=== PATIENT | female | born 1940 | race African-American/Black ===

== ENCOUNTER 2017-06-25 17:14 | Emergency (ER) | payer MEDICARE, BC ==
--- NOTE | 2017-06-25 18:06 | CT ---
NONCONTRAST CT HEAD 06/25/17 HISTORY: Head Injury after slipping and falling on ice. Patient fell backwards and hit back of head. Mild righ t sided neck pain and pain to back of head. COMPARISON: None available. FINDINGS: There is increased density seen within a posterior sulcus right frontal lobe at the vertex consistent with small amount of subarachnoid hemorrhage. No additional intraparenchymal or extra-axial hemorrha ge is visualized. There is no evidence of an acute infarction, mass effect, or midline shift. Ventricular system is nor mal in size, shape and position for the degree of sulcal atrophy. Calvarial structures are intact, an d no calvarial fracture is visualized. Minimal mucosal thickening is seen in the posterior right ethm oidal air cell. Mastoid air cells are clear. IMPRESSION: 1. Small amount of subarachnoid hemorrhage posterior right frontal lobe near the vertex. Followu p evaluation is recommended to evaluate for expected evolutionary changes in blood products. 2. Above findings discussed with Dr. Carreon in the Emergency Department on 06/25/17 at 1747 hours . POS: [facility]
[2017-06-25 18:39] LABS: #Basophils 0.1 thou/uL (0.0-0.2); #Eosinphils 0.1 thou/uL (0.0-0.7); #Lymphocytes 1.8 thou/uL (1.20-3.40); #Monocytes 0.5 thou/uL (0.11-0.59); #Neutrophils 6.9 thou/uL (1.40-6.50); %Basophils 0.5 % (0.0-1.0); %Eosinophils 0.8 % (0.0-10.0); %Lymphocytes 18.9 % (21.0-51.0); %Monocytes 5.3 % (0.0-10.0); %Neutrophils 74.4 % (42.0-75.0); Hemoglobin 12.7 g/dL (12.0-16.0); Mean Corpuscular HGB CONC 32.3 g/dL (32.0-36.0); Mean Corpuscular Hemoglobin 31.2 pg (27.0-31.0); Mean Corpuscular Volume 96.6 fl (81.0-99.0); Mean Platelet Volume 6.7 fL (7.4-10.4); Platelet Count 275 thou/uL (130-400); RBC Distribution Width 11.7 % (11.5-14.5); Red Blood Cell (RBC) Count 4.07 mill/uL (4.20-5.40); White Blood Cell (WBC) Count 9.3 thou/uL (4.8-10.8)
[2017-06-25 18:45] LABS: PTT 29.5 SEC (22.9-36.1); Prothrombin Time 13.5 SEC (12.0-14.7)
[2017-06-25 18:53] LABS: ALT (SGPT) 15 U/L (8-55); AST (SGOT) 21 U/L (5-34); Alkaline Phosphatase 84 U/L (40-150); Anion Gap 15 mmol/L (10-20); BUN (Urea Nitrogen) 11 mg/dL (9.8-20.1); Bilirubin, Total 0.9 mg/dL (0.2-1.2); Calc. Creatinine Clearance 0 mL/min (70-130); Calcium 9.4 mg/dL (7.8-10.44); Carbon Dioxide 24 mmol/L (23-31); Chloride 105 mmol/L (98-107); Estimated GFR-MDRD 83; Globulin 3.7 g/dL (2.4-3.5); Glucose 87 mg/dL (83-110); Potassium 3.9 mmol/L (3.5-5.1); Protein, Total 7.7 g/dL (6.0-8.3); Sodium 140 mmol/L (136-145)
[2017-06-25 18:55] LABS: CKMB 1.4 ng/mL (0-6.6); Troponin I Less than 0.010 ng/mL (< 0.028)
== END 2017-06-25 19:08 | disposition short-term general hospital (02) ==
LOC: NAV ERS 17:14
DX: S06.6X0A Traumatic subarachnoid hemorrhage without loss of consciousness, initial encounter (principal); I10 Essential (primary) hypertension; Z91.19 Patient's noncompliance with other medical treatment and regimen; Z79.82 Long term (current) use of aspirin; W00.0XXA Fall on same level due to ice and snow, initial encounter; Y92.89 Other specified places as the place of occurrence of the external cause
CPT/HCPCS: 70450; 80053; 82553; 84484; 85025; 85610; 85730; 93005